=== PATIENT | female | born 1995 | race Caucasian/White ===

== ENCOUNTER 2021-06-19 17:19 | Emergency (ER) | payer SELFPAY ==
[~2021-06-19] VITALS: Ht 175.3 cm; Wt 98.0 kg
[~2021-06-19 17:19] MED LIST: NITR100C62 PO; RISP0.5T24 PO; SERT25TA PO
[2021-06-19 17:35] VITALS: BP 141/83
[2021-06-19] MEDS ORDERED: IBUPROFEN 600 MG TABLET. PO ONE (17:45)
[2021-06-19 18:04] LABS: BACTERIA,URINE 0 /HPF (0-FEW); BILIRUBIN,URINE NEG (NEG); CLARITY,URINE CLEAR; COLOR,URINE YELLOW; GLUCOSE,URINE NEG (NEG); NITRITE,URINE NEG (NEG); RBC,URINE 0 /HPF (0-2); SQUAMOUS EPITHELIAL CELL,UR FEW /LPF; UROBILINOGEN,URINE 0.2 mg/dL (0.2 mg/dL); WBC,URINE 0 /HPF (0-4)
[2021-06-19] MEDS ORDERED: MORPHINE SULFATE 4 MG/ML DISP.SYRIN. IV ONE ×2 (18:30→21:45)
[2021-06-19] MEDS ORDERED: ONDANSETRON PF 4 MG/2 ML VIAL. IVP ONE (18:30)
[2021-06-19 19:13] LABS: CALCIUM 9.1 mg/dL (8.5-10.1); CREATININE 0.8 mg/dL (0.6-1.0); GFR 87.4; POTASSIUM 3.7 mmol/L (3.5-5.1)
[2021-06-19 19:18] LABS: ALBUMIN 4.2 g/dL (3.4-5.0); ALBUMIN/GLOBULIN RATIO 1.3 (1.0-1.7); TOTAL BILIRUBIN 0.4 mg/dL (0.2-1.0); TOTAL PROTEIN 7.4 g/dL (6.4-8.2)
[2021-06-19 19:24] LABS: BASO % 0 % (0-3); EOS # 0.1 x10^3/uL (0.0-0.7); EOS % 2 % (0-3); HEMATOCRIT 42.3 % (36.0-47.0); HEMOGLOBIN 14.4 g/dL (12.0-15.5); LYMPH # 3.1 x10^3/uL (1.0-4.8); LYMPH % 42 % (24-48); MEAN CORPUSCULAR HEMOGLOBIN 34 pg (25-35); MEAN CORPUSCULAR HGB CONC 34 g/dL (31-37); MEAN CORPUSCULAR VOLUME 99 fL (79-100); MONO # 0.5 x10^3/uL (0.0-1.1); MONO % 7 % (0-9); NEUT # 3.6 x10^3uL (1.8-7.7); NEUT % 49 % (31-73); PLATELET COUNT 227 x10^3/uL (140-400); RED BLOOD COUNT 4.29 x10^6/uL (3.50-5.40); RED CELL DISTRIBUTION WIDTH 13.8 % (11.5-14.5); WHITE BLOOD COUNT 7.4 x10^3/uL (4.0-11.0)
[2021-06-19 19:35] LABS: U PREG PATIENT NEGATIVE (NEG)
--- NOTE | 2021-06-19 21:27 | PHYS DOC ---
Past History Past Medical History: Asthma, Depression Additional Past Medical Histor: Pt A1. LMP 08/18/13. Pt started on Mirena IUD 2 months ago. (ADY DUMONT APRN) Past Surgical History: , Other Additional Past Surgical Histo: LEFT WRIST (ADY DUMONT APRN) Smoking: Cigarettes, Less than 1pk/day Alcohol Use: None Drug Use: None (ADY DUMONT APRN) Adult General Chief Complaint Chief Complaint: ABDOMINAL PAIN HPI HPI Patient is a 25-year-old female presents to the emergency department complaining of left sided pelvic pain since 1030 this morning. Patient reports pain came on slowly and became unbearable towards the end of the day, patient reports a history of ovarian cyst on the left, states she is 4 days from starting her next menstrual cycle, patient reports similar episodes in the past with near her menstrual cycles, patient states this pain is worse than what she remembers currently stating 7-8 out of 10 pain, patient reports she took 4 tablets of 325 mg Tylenol 3 hours ago with minimal relief. Patient states she is not sexually active, denies rashes or lesions to her vagina, denies vaginal discharge or STI concerns. Patient denies increased urinary pressure, urinary frequency, or other dysuria. Patient denies nausea, vomiting, diarrhea or constipation. Denies chest pains or shortness of breath. Denies recent fever or chills. Patient denies other physical complaints or physical concerns. (ADY DUMONT APRN) Review of Systems Review of Systems 14 body systems of review of systems have been reviewed. See HPI for pertinent positives and negative responses, otherwise all other systems are negative, nonpertinent or noncontributory. Constitutional: Negative except as outlined in HPI above. Skin: Negative except as outlined in HPI above. Eyes: Negative except as outlined in HPI above. HENT: Negative except as outlined in HPI above. Respiratory: Negative except as outlined in HPI above. Cardiovascular: Negative except as outlined in HPI above. GI: Negative except as outlined in HPI above. : Negative except as outlined in HPI above. Musculoskeletal: Negative except as outlined in HPI above. Integument: Negative except as outlined in HPI above. Neurologic: Negative except as outlined in HPI above. Endocrine: Negative except as outlined in HPI above. Lymphatic: Negative except as outlined in HPI above. Psychiatric: Negative except as outlined in HPI above. (ADY DUMONT APRN) Current Medications Current Medications Current Medications Medications (Trade) Dose Ordered Sig/Nancy Start Time Stop Time Status Last Admin Dose Admin Ibuprofen (Motrin) 600 mg 1X ONCE 06/19/21 17:45 06/19/21 17:46 DC 06/19/21 17:45 600 MG Morphine Sulfate (Morphine 4mg Syringe) 4 mg 1X ONCE 06/19/21 18:30 06/19/21 18:31 DC 06/19/21 18:50 4 MG Ondansetron HCl (Zofran) 4 mg 1X ONCE 06/19/21 18:30 06/19/21 18:31 DC 06/19/21 18:49 4 MG (ADY DUMONT APRN) Allergies Allergies Allergies Coded Allergies Type Severity Reaction Last Updated Verified No Known Drug Allergies 06/19/21 No (ADY DUMONT APRN) Physical Exam Physical Exam Constitutional: Well developed, well nourished, no acute distress, non-toxic appearance. 25-year-old female is tearful otherwise in no apparent distress. HENT: Normocephalic, atraumatic. Eyes: Conjunctiva normal, no discharge. Neck: Normal range of motion, no stridor. Cardiovascular: No cyanosis appreciated, distal cap refill less than 2 seconds. Lungs & Thorax: Patient is in no respiratory distress, no audible adventitious lung sounds appreciated. Abdomen: Nontender to all 4 quadrants, normal bowel sounds all 4 quadrants, no masses, no megaly appreciated, no skin discoloration of the abdomen appreciated, no abnormalities noted. Patient does have pain to palpation left lower pelvic area without rebound tenderness. No right-sided pelvic tenderness to palpation. Skin: Warm, dry, no erythema, no rash. Back: No tenderness, no deformities. Extremities: No tenderness, no cyanosis, no clubbing, ROM intact, no edema. Neurologic: Alert and oriented X 3, normal motor function, normal sensory function, no focal deficits noted. Psychologic: Affect normal, judgement normal, mood normal. (ADY DUMONT APRN) Current Patient Data Vital Signs Vital Signs Date Time Temp Pulse Resp B/P (MAP) Pulse Ox O2 Delivery O2 Flow Rate FiO2 06/19/21 17:35 98.2 83 18 141/83 (102) 100 Room Air Lab Results Laboratory Tests Test 06/19/21 17:40 06/19/21 18:45 Urine Collection Type Clean catch Urine Color Yellow Urine Clarity Clear Urine pH 6.0 Urine Specific Newberg 1.015 Urine Protein Neg Urine Glucose (UA) Neg mg/dL Urine Ketones (Stick) Neg mg/dL Urine Blood Neg Urine Nitrite Neg Urine Bilirubin Neg Urine Urobilinogen Dipstick 0.2 mg/dL Urine Leukocyte Esterase Neg Urine RBC 0 /HPF Urine WBC 0 /HPF Urine Squamous Epithelial Cells Few /LPF Urine Bacteria 0 /HPF White Blood Count 7.4 x10^3/uL Red Blood Count 4.29 x10^6/uL Hemoglobin 14.4 g/dL Hematocrit 42.3 % Mean Corpuscular Volume 99 fL Mean Corpuscular Hemoglobin 34 pg Mean Corpuscular Hemoglobin Concent 34 g/dL Red Cell Distribution Width 13.8 % Platelet Count 227 x10^3/uL Neutrophils (%) (Auto) 49 % Lymphocytes (%) (Auto) 42 % Monocytes (%) (Auto) 7 % Eosinophils (%) (Auto) 2 % Basophils (%) (Auto) 0 % Neutrophils # (Auto) 3.6 x10^3uL Lymphocytes # (Auto) 3.1 x10^3/uL Monocytes # (Auto) 0.5 x10^3/uL Eosinophils # (Auto) 0.1 x10^3/uL Basophils # (Auto) 0.0 x10^3/uL Urine Test Negative Sodium Level 140 mmol/L Potassium Level 3.7 mmol/L Chloride Level 106 mmol/L Carbon Dioxide Level 24 mmol/L Anion Gap 10 Blood Urea Nitrogen 4 mg/dL Creatinine 0.8 mg/dL Estimated GFR (Cockcroft-Gault) 87.4 BUN/Creatinine Ratio 5 Glucose Level 80 mg/dL Calcium Level 9.1 mg/dL Total Bilirubin 0.4 mg/dL Aspartate Amino Transf (AST/SGOT) 20 U/L Alanine Aminotransferase (ALT/SGPT) 21 U/L Alkaline Phosphatase 70 U/L Total Protein 7.4 g/dL Albumin 4.2 g/dL Albumin/Globulin Ratio 1.3 Lipase 43 U/L Current Medications Medications (Trade) Dose Ordered Sig/Nancy Route PRN Reason Start Time Stop Time Status Last Admin Dose Admin Ibuprofen (Motrin) 600 mg 1X ONCE PO 06/19/21 17:45 06/19/21 17:46 DC 06/19/21 17:45 Ondansetron HCl (Zofran) 4 mg 1X ONCE IVP 06/19/21 18:30 06/19/21 18:31 DC 06/19/21 18:49 Morphine Sulfate (Morphine 4mg Syringe) 4 mg 1X ONCE IV 06/19/21 18:30 06/19/21 18:31 DC 06/19/21 18:50 Morphine Sulfate (Morphine 4mg Syringe) 4 mg 1X ONCE IV 06/19/21 21:45 06/19/21 21:46 DC 06/19/21 21:33 Acetaminophen/ Hydrocodone Bitart (Lortab 5) 2 tab 1X ONCE PO 06/19/21 22:15 06/19/21 22:12 DC 06/19/21 22:12 Laboratory Tests Test 06/19/21 17:40 06/19/21 18:45 Urine Collection Type Clean catch Urine Color Yellow Urine Clarity Clear Urine pH 6.0 Urine Specific Newberg 1.015 Urine Protein Neg (NEG-TRACE) Urine Glucose (UA) Neg mg/dL (NEG) Urine Ketones (Stick) Neg mg/dL (NEG) Urine Blood Neg (NEG) Urine Nitrite Neg (NEG) Urine Bilirubin Neg (NEG) Urine Urobilinogen Dipstick 0.2 mg/dL (0.2 mg/dL) Urine Leukocyte Esterase Neg (NEG) Urine RBC 0 /HPF (0-2) Urine WBC 0 /HPF (0-4) Urine Squamous Epithelial Cells Few /LPF Urine Bacteria 0 /HPF (0-FEW) White Blood Count 7.4 x10^3/uL (4.0-11.0) Red Blood Count 4.29 x10^6/uL (3.50-5.40) Hemoglobin 14.4 g/dL (12.0-15.5) Hematocrit 42.3 % (36.0-47.0) Mean Corpuscular Volume 99 fL (79-100) Mean Corpuscular Hemoglobin 34 pg (25-35) Mean Corpuscular Hemoglobin Concent 34 g/dL (31-37) Red Cell Distribution Width 13.8 % (11.5-14.5) Platelet Count 227 x10^3/uL (140-400) Neutrophils (%) (Auto) 49 % (31-73) Lymphocytes (%) (Auto) 42 % (24-48) Monocytes (%) (Auto) 7 % (0-9) Eosinophils (%) (Auto) 2 % (0-3) Basophils (%) (Auto) 0 % (0-3) Neutrophils # (Auto) 3.6 x10^3uL (1.8-7.7) Lymphocytes # (Auto) 3.1 x10^3/uL (1.0-4.8) Monocytes # (Auto) 0.5 x10^3/uL (0.0-1.1) Eosinophils # (Auto) 0.1 x10^3/uL (0.0-0.7) Basophils # (Auto) 0.0 x10^3/uL (0.0-0.2) Urine Test Negative (NEG) Sodium Level 140 mmol/L (136-145) Potassium Level 3.7 mmol/L (3.5-5.1) Chloride Level 106 mmol/L (98-107) Carbon Dioxide Level 24 mmol/L (21-32) Anion Gap 10 (6-14) Blood Urea Nitrogen 4 mg/dL (7-20) L Creatinine 0.8 mg/dL (0.6-1.0) Estimated GFR (Cockcroft-Gault) 87.4 BUN/Creatinine Ratio 5 (6-20) L Glucose Level 80 mg/dL (70-99) Calcium Level 9.1 mg/dL (8.5-10.1) Total Bilirubin 0.4 mg/dL (0.2-1.0) Aspartate Amino Transferase (AST) 20 U/L (15-37) Alanine Aminotransferase (ALT) 21 U/L (14-59) Alkaline Phosphatase 70 U/L (46-116) Total Protein 7.4 g/dL (6.4-8.2) Albumin 4.2 g/dL (3.4-5.0) Albumin/Globulin Ratio 1.3 (1.0-1.7) Lipase 43 U/L (73-393) L (ADY DUMONT APRN) EKG EKG [] (ADY DUMONT APRN) Radiology/Procedures Radiology/Procedures STATUS: REG ER ORD. PHYSICIAN: ADY DUMONT APRN REASON: Left sided pelvic pain torsion study PROCEDURE: US PELVIS W/TV EXAM: ULTRASOUND PELVIS INDICATION: Reason: Left sided pelvic pain torsion study / Spl. Instructions: / History: . Last menstrual period was 05/23/2021. COMPARISON: None available. TECHNIQUE: Transvaginal sonography was performed. FINDINGS: Uterus measures 7.9 x 4.8 x 4.4 cm. Endometrium is 6 mm in thickness. Right ovary measures 3.9 x 2.4 x 1.4 cm. Left ovary measures 4.2 x 3.6 x 2.3 cm. 6 cyst within the left ovary measuring up to 1.6 cm. Vascular flow identified in the ovaries bilaterally. Small free fluid noted in the pelvis. IMPRESSION: 1. Likely hemorrhagic cyst within the left ovary measuring up to 1.6 cm. No evidence for torsion. 2. Normal sonographic appearance of the uterus. 3. Trace free fluid in the pelvis, may be physiologic. Electronically signed by: Rick Membreno MD (06/19/2021 9:39 PM) [facility] (ADY DUMONT APRN) Heart Score C/O Chest Pain: No Risk Factors: Risk Factors: DM, Current or recent (<one month) smoker, HTN, HLP, family history of CAD, obesity. Risk Scores: Risk Factors: DM, Current or recent (<one month) smoker, HTN, HLP, family history of CAD, obesity. (ADY DUMONT APRN) Course & Med Decision Making Course & Med Decision Making Pertinent Labs and Imaging studies reviewed. (See chart for details) 25-year-old female, vital signs reviewed, presents emergency department concerning left lower pelvic pain since 1030 this morning. Physical examination concerning for ovarian cyst versus torsion versus other abnormality, will order pelvic sonogram, urinalysis assay with test, CBC, CMP. Will give intravenous pain medication. Patient denies rashes or lesions to her vaginal area, denies STI concerns, reports she is not sexually active, will defer pelvic examination or STI testing. Sonogram does reveal ovarian cyst, low concern for torsion, patient's lab work unremarkable, the patient's urine is not infected, she is not . Reports IV pain medication brought pain to a 0 out of 10. Patient did wait some time in the emergency department for available sono tech for study, pain started to return, patient was given oral pain medication. Discussed with patient sonogram findings, strict follow-up with primary care or PUBLISHING SYSTEMS ANALYST for ongoing pelvic discomfort and evaluation of ovarian cyst. Discussed with patient prescription medications, reviewed side effects, discussed return to ER precautions and concerns, patient gave verbal understanding of and is amenable to ED discharge planning. Patient reports 2 out of 10 pain at time of discharge, is no longer tearful, is not toxic in appearance, is in no apparent distress, verbalizes she feels safe being discharged home. Discussed with the patient all findings and diagnostic testing as well as the need to follow-up with their primary care provider for further evaluation and treatment or return to the ED if any new or worsening symptoms. Strict return precautions were also discussed at length, the patient voiced understanding and agreement with the discharge planning. The patient was nontoxic in appearance, in no apparent distress, and hemodynamically stable at the time of disposition. (ADY DUMONT APRN) Course & Med Decision Making Did not see or evaluate patient. Did not discuss patient with COMMERCIAL CLEANER. Agree with COMMERCIAL CLEANER's work-up and disposition per note. (MACIEJ ELDER MD) Dragon Disclaimer Dragon Disclaimer This electronic medical record was generated, in whole or in part, using a voice recognition dictation system. (ADY DUMONT APRN) Departure Departure: Impression: Primary Impression: Ovarian cyst Additional Impression: Pelvic pain Disposition: 01 HOME / SELF CARE / HOMELESS Condition: GOOD Referrals: PCP,NO (PCP) Additional Instructions: You were seen today for pain in your lower left pelvis area. A sonogram was performed that showed a ovarian cyst on the left. You do not have a ovarian torsion. You were given oral pain medication for your ovarian cyst pain. Please follow-up with a primary care physician or PUBLISHING SYSTEMS ANALYST for ongoing management of this ovarian cyst. You had stated you did not have a primary care physician, please consider using the [facility] located at [address] and [facility], [address], their telephone number is area code [phone]. You may also consider using the [facility] obstetrics and gynecology located AT [address] [place], their telep yaakov number is area code [phone]. These take prescribed medications as directed, thank you for visiting our Emergency Department. It was a pleasure taking care of you today in the emergency department and we appreciate you trusting us with your care. If any additional problems come up don't hesitate to return to visit us. Please follow up with your primary care provider so they can plan additional care if needed and know about the problem that you had. If symptoms worsen come back to the Emergency Department. Any concerning symptoms that start such as chest pain, shortness of air, weakness or numbness on one side of the body, running high fevers or any other concerning symptoms return to the ER. EMERGENCY DEPARTMENT GENERAL DISCHARGE INSTRUCTIONS Thank you for coming to [facility] (ED) today and trusting us with you care. We trust that you had a positivie experience in our Emergency Department. If you wish to speak to the department management, you may call the director at [phone]. YOUR FOLLOW UP INSTRUCTIONS ARE FOLLOWS: 1. Do you have a private Doctor? If you do not have a private doctor, please ask for a resource list of physicians or clinics that may be able to assist you with follow up care. 2. The Emergency Physician has interpreted your x-rays. The X-Ray specialist will also review them. If there is a change in the findings, you will be notified in 48 hours when at all possible. 3. A lab test or culture has been done, your results will be reviewed and you will be notified if you need a change in treatment. ADDITIONAL INSTRUCTIONS AND INFORMATION: 1. Your care today has been supervised by a physician who is specially trained in emergency care. Many problems require more than one evaluation for a complete diagnosis and treatment. We recommend that you schedule your follow up appointment as recommended to ensure complete treatment of you illness or injury. If you are unable to obtain follow up care and continue to have a problem, or if your condition worsens, we recommend that you return to the ED. 2. We are not able to safely determine your condition over the phone nor are we able to give sound medical advice over the phone. For these safety reasons, if you call for medical advice we will ask you to come to the ED for further evaluation. 3. If you have any questions regarding these discharge instructions please call the ED at [phone]. SAFETY INFORMATION: In the interest of safety, wellness, and injury prevention; we encourage you to wear your sealbelt, if you smoke; quite smoking, and we encourage family to use a protective helmet for bicycling and other sporting events that present an increased risk for head injury. IF YOUR SYMPTOMS WORSEN OR NEW SYMPTOMS DEVELOP, OR YOU HAVE CONCERNS ABOUT YOUR CONDITION; OR IF YOUR CONDITION WORSENS WHILE YOU ARE WAITING FOR YOUR FOLLOW UP APPOINTMENT; EITHER CONTACT YOUR PRIMARY CARE DOCTOR, THE PHYSICIAN WHOSE NAME AND NUMBER YOU WERE GIVEN, OR RETURN TO THE ED IMMEDIATELY. Scripts Ibuprofen (IBUPROFEN) 600 Mg Tablet 600 MG PO Q6-8HRS PRN for PAIN, #30 TAB 0 Refills Prov: ADY DUMONT APRN 06/19/21 Hydrocodone Bit/Acetaminophen (HYDROCODONE-APAP 5-325 ) 1 Each Tablet 1 TAB PO PRN Q6HRS PRN for PAIN, #10 TAB 0 Refills Prov: ADY DUMONT APRN 06/19/21 Problem Qualifiers Primary Impression: Ovarian cyst Laterality: left Qualified Codes: N83.202 - Unspecified ovarian cyst, left side ADY DUMONT APRN Jun 19, 2021 21:27 MACIEJ ELDER MD Jun 20, 2021 19:14
--- NOTE | 2021-06-19 21:41 | RAD ---
EXAM: ULTRASOUND PELVIS INDICATION: Reason: Left sided pelvic pain torsion study / Spl. Instructions: / History: . Last men strual period was 05/23/2021. COMPARISON: None available. TECHNIQUE: Transvaginal sonography was performed. FINDINGS: Uterus measures 7.9 x 4.8 x 4.4 cm. Endometrium is 6 mm in thickness. Right ovary measures 3.9 x 2.4 x 1.4 cm. Left ovary measures 4.2 x 3.6 x 2.3 cm. 6 cyst within the left ovary measuring up to 1.6 cm. Vascular flow identified in the ovaries bilaterally. Small free fluid noted in the pelvis. IMPRESSION: 1. Likely hemorrhagic cyst within the left ovary measuring up to 1.6 cm. No evidence for torsion. 2. Normal sonographic appearance of the uterus. 3. Trace free fluid in the pelvis, may be physiologic. Electronically signed by: Rick Membreno MD (06/19/2021 9:39 PM) [facility]
[2021-06-19] MEDS ORDERED: IBUP600T16 PO (21:57)
[2021-06-19] MEDS ORDERED: HYDR-2155 PO (21:57)
[2021-06-19] MEDS ORDERED: HYDROcodone/APAP 5/325MG 1 TAB TABLET PO ONE (22:15)
== END 2021-06-19 22:12 | disposition home or self-care (01) ==
LOC: ER 17:19
DX: N83.202 Unspecified ovarian cyst, left side (principal); J45.909 Unspecified asthma, uncomplicated; F32.9 Major depressive disorder, single episode, unspecified; F17.210 Nicotine dependence, cigarettes, uncomplicated
CPT/HCPCS: 36415; 76830; 76856; 80053; 81001; 81025; 83690; 85025; 96374; 96375; 96376; 99284; J2270; J2405

== ENCOUNTER 2021-06-24 16:55 | Emergency (ER) | payer MEDICAID ==
[~2021-06-24 16:55] MED LIST changes: +HYDR-2155 PO; +IBUP600T16 PO
[2021-06-24] MEDS ORDERED: MORPHINE SULFATE 4 MG/ML DISP.SYRIN. IV ONE ×2 (17:30→19:30)
--- NOTE | 2021-06-24 18:05 | RAD ---
Examination: CT of the abdomen and pelvis without contrast HISTORY: History of abdominal pain COMPARISON: 10/10/2013 TECHNIQUE: Axial CT images of the abdomen pelvis were performed without contrast. Coronal and sagitta l deformities are performed Exposure: One or more of the following individualized dose reduction techniques were utilized for thi s examination: 1. Automated exposure control 2. Adjustment of the mA and/or kV according to patient size 3. Use of iterative reconstruction technique FINDINGS: The bibasilar lungs are clear. No evidence of free air identified in the abdomen. The evaluation of t he solid organs is limited due to lack of IV contrast. The evaluation of bowel is limited due to lack of oral contrast. The visualized noncontrasted liver, spleen, right adrenal grossly appears unremark able. 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 The gallbladder is mildly distended. The stomach is mildly distended. The visua lized pancreas grossly appears unremarkable. Mildly fluid distended small bowel loops identified in t he abdomen with mild fat stranding identified about the small bowel loops. Mild thickened appearance of the wall of the sigmoid colon with minimal surrounding fat stranding. Small amount of free fluid i dentified in the pelvis. Urinary bladder is mildly distended. The appendix is normal. Punctate 1 mm c alculus left kidney. Mild thickened appearance of the urinary bladder wall. No evidence of lytic bony destructive lesion. IMPRESSION: 1. Mild fluid distended small bowel loops identified in the abdomen with mild fat stranding identifi ed about the small bowel loops could be mild enteritis. 2. Mild thickened appearance of the wall of the sigmoid colon with minimal surrounding fat stranding could be due to nondistention or mild colitis. 3. Small amount of free fluid identified in the pelvis, nonspecific. 4. 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 5. Punctate 1 mm calculus left kidney. 6. Mild thickened appearance of the urinary bladder wall could be due to nondistention or cystitis. Electronically signed by: Darrin Moreno MD (06/24/2021 6:03 PM) [id number]
[2021-06-24 18:17] LABS: BASO % 1 % (0-3); EOS # 0.1 x10^3/uL (0.0-0.7); EOS % 2 % (0-3); HEMATOCRIT 40.6 % (36.0-47.0); HEMOGLOBIN 13.8 g/dL (12.0-15.5); LYMPH # 2.6 x10^3/uL (1.0-4.8); LYMPH % 35 % (24-48); MEAN CORPUSCULAR HEMOGLOBIN 34 pg (25-35); MEAN CORPUSCULAR HGB CONC 34 g/dL (31-37); MEAN CORPUSCULAR VOLUME 99 fL (79-100); MONO # 0.5 x10^3/uL (0.0-1.1); MONO % 7 % (0-9); NEUT # 4.2 x10^3uL (1.8-7.7); NEUT % 56 % (31-73); PLATELET COUNT 204 x10^3/uL (140-400); RED BLOOD COUNT 4.09 x10^6/uL (3.50-5.40); RED CELL DISTRIBUTION WIDTH 13.7 % (11.5-14.5); WHITE BLOOD COUNT 7.5 x10^3/uL (4.0-11.0)
[2021-06-24 18:27] LABS: BILIRUBIN,URINE NEG (NEG); CALCIUM 8.7 mg/dL (8.5-10.1); CLARITY,URINE CLEAR; COLOR,URINE YELLOW; CREATININE 0.8 mg/dL (0.6-1.0); GFR 87.4; GLUCOSE,URINE NEG (NEG)
[2021-06-24 18:28] LABS: NITRITE,URINE NEG (NEG); UROBILINOGEN,URINE 0.2 mg/dL (0.2 mg/dL)
[2021-06-24 18:29] LABS: BACTERIA,URINE 0 /HPF (0-FEW); RBC,URINE OCC /HPF (0-2); SQUAMOUS EPITHELIAL CELL,UR FEW /LPF; WBC,URINE OCC /HPF (0-4)
[2021-06-24 18:32] LABS: ALBUMIN 3.7 g/dL (3.4-5.0); ALBUMIN/GLOBULIN RATIO 1.2 (1.0-1.7); TOTAL BILIRUBIN 0.2 mg/dL (0.2-1.0); TOTAL PROTEIN 6.8 g/dL (6.4-8.2)
[2021-06-24] MEDS ORDERED: ONDANSETRON PF 4 MG/2 ML VIAL. ONE (19:29)
[2021-06-24 19:32] VITALS: BP 115/70
[2021-06-24] MEDS ORDERED: ONDANSETRON PF 4 MG/2 ML VIAL. IVP ONE (19:45)
[2021-06-24] MEDS ORDERED: ONDA4TAB12 PO (19:58)
[2021-06-24] MEDS ORDERED: HYDR-2155 PO (19:58)
--- NOTE | 2021-06-24 20:00 | PHYS DOC ---
Past History Past Medical History: Asthma, Depression Additional Past Medical Histor: Pt A1. LMP 08/18/13. Pt started on Mirena IUD 2 months ago. (RODRICK HAQUE APRN) Past Surgical History: , Other Additional Past Surgical Histo: LEFT WRIST (RODRICK HAQUE APRN) Smoking: Cigarettes, Less than 1pk/day Alcohol Use: None Drug Use: None (RODRICK HAQUE APRN) General Adult EDM: Chief Complaint: ABDOMINAL PAIN HPI: HPI: Patient is a 25-year-old female who presents with left lower abdominal pain . Patient states that she was seen here 5 days ago for the same complaint but pain has not improved. Patient was diagnosed with an ovarian cyst at that time. Patient has not followed up with [facility]. Denies worsening symptoms. Patient was prescribed hydrocodone at that time but is out medication at home. Patient reports nausea. Denies vomiting or diarrhea. Denies dysuria. No chest pain, shortness of breath. Denies taking anything prior to arrival for symptoms. History of anxiety and depression. (RODRICK HAQUE APRN) Review of Systems: Review of Systems: ROS At least 10 ROS systems have been reviewed and are negative except as documented in the HPI. General: Negative except as outlined in HPI above. Skin: Negative except as outlined in HPI above. HEENT: Negative except as outlined in HPI above. Neck: Negative except as outlined in HPI above. Respiratory: Negative except as outlined in HPI above.. Cardiovascular: Negative except as outlined in HPI above. Abdomen: Negative except as outlined in HPI above. : Negative except as outlined in HPI above. Back/MSK: Negative except as outlined in HPI above. Neuro: Negative except as outlined in HPI above. Psych: Negative except as outlined in HPI above. (RODRICK HAQUE APRN) Current Medications: Current Meds: Current Medications Medications (Trade) Dose Ordered Sig/Nancy Start Time Stop Time Status Last Admin Dose Admin Morphine Sulfate (Morphine 4mg Syringe) 4 mg 1X ONCE 06/24/21 19:30 06/24/21 19:33 DC 06/24/21 19:30 4 MG Ondansetron HCl (Zofran) 4 mg 1X ONCE 06/24/21 19:45 06/24/21 19:46 06/24/21 19:33 4 MG (RODRICK HAQUE APRN) Allergies: Allergies: Allergies Coded Allergies Type Severity Reaction Last Updated Verified No Known Drug Allergies 06/19/21 No (RODRICK HAQUE APRN) Physical Exam: PE: Constitutional: Well developed, well nourished, no acute distress, non-toxic appearance. [] HENT: Normocephalic, atraumatic, bilateral external ears normal, oropharynx moist, no oral exudates, nose normal. [] Eyes: PERRLA, EOMI, conjunctiva normal, no discharge. [] Neck: Normal range of motion, no tenderness, supple, no stridor. [] Cardiovascular:Heart rate regular rhythm, no murmur [] Lungs & Thorax: Bilateral breath sounds clear to auscultation [] Abdomen: Bowel sounds normal, soft, left lower abdominal tenderness Skin: Warm, dry, no erythema, no rash. [] Back: No tenderness, no CVA tenderness. [] Extremities: No tenderness, no cyanosis, no clubbing, ROM intact, no edema. [] Neurologic: Alert and oriented X 3, normal motor function, normal sensory function, no focal deficits noted. [] Psychologic: Affect normal, judgement normal, mood normal. [] (RODRICK HAQUE APRN) Current Patient Data: Labs: Laboratory Tests Test 06/24/21 17:50 White Blood Count 7.5 x10^3/uL (4.0-11.0) Red Blood Count 4.09 x10^6/uL (3.50-5.40) Hemoglobin 13.8 g/dL (12.0-15.5) Hematocrit 40.6 % (36.0-47.0) Mean Corpuscular Volume 99 fL (79-100) Mean Corpuscular Hemoglobin 34 pg (25-35) Mean Corpuscular Hemoglobin Concent 34 g/dL (31-37) Red Cell Distribution Width 13.7 % (11.5-14.5) Platelet Count 204 x10^3/uL (140-400) Neutrophils (%) (Auto) 56 % (31-73) Lymphocytes (%) (Auto) 35 % (24-48) Monocytes (%) (Auto) 7 % (0-9) Eosinophils (%) (Auto) 2 % (0-3) Basophils (%) (Auto) 1 % (0-3) Neutrophils # (Auto) 4.2 x10^3uL (1.8-7.7) Lymphocytes # (Auto) 2.6 x10^3/uL (1.0-4.8) Monocytes # (Auto) 0.5 x10^3/uL (0.0-1.1) Eosinophils # (Auto) 0.1 x10^3/uL (0.0-0.7) Basophils # (Auto) 0.0 x10^3/uL (0.0-0.2) Urine Collection Type Unknown Urine Color Yellow Urine Clarity Clear Urine pH 6.0 Urine Specific [place] <=1.005 Urine Protein Neg (NEG-TRACE) Urine Glucose (UA) Neg mg/dL (NEG) Urine Ketones (Stick) Neg mg/dL (NEG) Urine Blood Neg (NEG) Urine Nitrite Neg (NEG) Urine Bilirubin Neg (NEG) Urine Urobilinogen Dipstick 0.2 mg/dL (0.2 mg/dL) Urine Leukocyte Esterase Neg (NEG) Urine RBC Occ /HPF (0-2) Urine WBC Occ /HPF (0-4) Urine Squamous Epithelial Cells Few /LPF Urine Bacteria 0 /HPF (0-FEW) Sodium Level 140 mmol/L (136-145) Potassium Level 4.0 mmol/L (3.5-5.1) Chloride Level 106 mmol/L (98-107) Carbon Dioxide Level 24 mmol/L (21-32) Anion Gap 10 (6-14) Blood Urea Nitrogen 4 mg/dL (7-20) L Creatinine 0.8 mg/dL (0.6-1.0) Estimated GFR (Cockcroft-Gault) 87.4 BUN/Creatinine Ratio 5 (6-20) L Glucose Level 86 mg/dL (70-99) Calcium Level 8.7 mg/dL (8.5-10.1) Total Bilirubin 0.2 mg/dL (0.2-1.0) Aspartate Amino Transferase (AST) 15 U/L (15-37) Alanine Aminotransferase (ALT) 19 U/L (14-59) Alkaline Phosphatase 61 U/L (46-116) Total Protein 6.8 g/dL (6.4-8.2) Albumin 3.7 g/dL (3.4-5.0) Albumin/Globulin Ratio 1.2 (1.0-1.7) Vital Signs: Vital Signs Date Time Temp Pulse Resp B/P (MAP) Pulse Ox O2 Delivery O2 Flow Rate FiO2 06/24/21 19:32 73 18 115/70 (85) 99 Room Air (SHABNAMRODRICKDOMINIQUE VALLE) EKG: EKG: [] (HAQUERODRICKDOMINIQUE VALLE) Radiology/Procedures: Radiology/Procedures: [] Examination: CT of the abdomen and pelvis without contrast HISTORY: History of abdominal pain COMPARISON: 10/10/2013 TECHNIQUE: Axial CT images of the abdomen pelvis were performed without contrast. Coronal and sagittal deformities are performed Exposure: One or more of the following individualized dose reduction techniques were utilized for this examination: 1. Automated exposure control 2. Adjustment of the mA and/or kV according to patient size 3. Use of iterative reconstruction technique FINDINGS: The bibasilar lungs are clear. No evidence of free air identified in the abdomen. The evaluation of the solid organs is limited due to lack of IV contrast. The evaluation of bowel is limited due to lack of oral contrast. The visualized noncontrasted liver, spleen, right adrenal grossly appears unremarkable. 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 The gallbladder is mildly distended. The stomach is mildly distended. The visualized pancreas grossly appears unremarkable. Mildly fluid distended small bowel loops identified in the abdomen with mild fat stranding identified about the small bowel loops. Mild thickened appearance of the wall of the sigmoid colon with minimal surrounding fat stranding. Small amount of free fluid identified in the pelvis. Urinary bladder is mildly distended. The appendix is normal. Punctate 1 mm calculus left kidney. Mild thickened appearance of the urinary bladder wall. No evidence of lytic bony destructive lesion. IMPRESSION: 1. Mild fluid distended small bowel loops identified in the abdomen with mild fat stranding identified about the small bowel loops could be mild enteritis. 2. Mild thickened appearance of the wall of the sigmoid colon with minimal surrounding fat stranding could be due to nondistention or mild colitis. 3. Small amount of free fluid identified in the pelvis, nonspecific. 4. 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 5. Punctate 1 mm calculus left kidney. 6. Mild thickened appearance of the urinary bladder wall could be due to nondistention or cystitis. Electronically signed by: Darrin Moreno MD (06/24/2021 6:03 PM) [id number] DICTATED AND SIGNED BY: DARRIN MORENO MD DATE: 06/24/211752 (RODRICK HAQUE APRN) Heart Score: C/O Chest Pain: No Risk Factors: Risk Factors: DM, Current or recent (<one month) smoker, HTN, HLP, family history of CAD, obesity. Risk Scores: Score 0 - 3: 2.5% MACE over next 6 weeks - Discharge Home Score 4 - 6: 20.3% MACE over next 6 weeks - Admit for Clinical Observation Score 7 - 10: 72.7% MACE over next 6 weeks - Early Invasive Strategies (RODRICK HAQUE APRN) Course & Med Decision Making: Course & Med Decision Making Pertinent Labs and Imaging studies reviewed. (See chart for details) [] 25-year-old female presents with left lower abdominal pain. This is patient's second visit in the last week. Patient was seen 5 days ago for same complaints and diagnosed at that time with an ovarian cyst. Patient is out of her hydrocodone that she was sent home with. Lower work-up in ER consisted of labs, urinalysis, CT abdomen and pelvis. Pain and nausea treated in the [facility] room. All labs unremarkable. UA is negative for infection. Get a test. CT abdomen pelvis shows some mild colitis. No evidence of obstructing stone. Discussed all results with patient. Advised patient pain is most likely resulting from ovarian cyst. Reviewed ultrasound results from last visit. Patient was still reporting pain. Patient given second dose of pain medication. I am sending patient home with hydrocodone along with Zofran to treat symptoms at home. Advised patient that she needs to make a follow-up appointment with a FACILITY MANAGER HISTOLOGY. Patient states that she now has insurance and that she will be calling [facility] to make an appointment. Discussed return precautions in length with patient. Patient reports that she understands discharge instructions. (RODRICK HAQUE APRN) Mary Disclaimer: Mary Disclaimer: This electronic medical record was generated, in whole or in part, using a voice recognition dictation system. (RODRICK HAQUE APRN) Departure Departure: Impression: Primary Impression: Abdominal pain Qualified Codes: R10.32 - Left lower quadrant pain Disposition: HOME / SELF CARE / HOMELESS Condition: STABLE Referrals: PCP,NO (PCP) Patient Instructions: Ovarian Cyst, [id number] Additional Instructions: You are seen the emergency room for left lower abdominal pain. Your pain is most likely coming from the ovarian cyst that you were diagnosed with 5 days ago. I am sending you home with pain medication along with nausea medication. Please make an appointment with FACILITY MANAGER HISTOLOGY and make a follow-up appointment for further management. Return to emergency room if you have worsening symptoms or concerns such as increased abdominal pain, uncontrolled nausea and vomiting, shortness of breath, chest pain. EMERGENCY DEPARTMENT GENERAL DISCHARGE INSTRUCTIONS Thank you for coming to [facility] (ED) today and trusting us with you care. We trust that you had a positivie experience in our Emergency Department. If you wish to speak to the department management, you may call the director at [phone]. YOUR FOLLOW UP INSTRUCTIONS ARE FOLLOWS: 1. Do you have a private Doctor? If you do not have a private doctor, please ask for a resource list of physicians or clinics that may be able to assist you with follow up care. 2. The Emergency Physician has interpreted your x-rays. The X-Ray specialist will also review them. If there is a change in the findings, you will be notified in 48 hours when at all possible. 3. A lab test or culture has been done, your results will be reviewed and you will be notified if you need a change in treatment. ADDITIONAL INSTRUCTIONS AND INFORMATION: 1. Your care today has been supervised by a physician who is specially trained in emergency care. Many problems require more than one evaluation for a complete diagnosis and treatment. We recommend that you schedule your follow up appointment as recommended to ensure complete treatment of you illness or injury. If you are unable to obtain follow up care and continue to have a problem, or if your condition worsens, we recommend that you return to the ED. 2. We are not able to safely determine your condition over the phone nor are we able to give sound medical advice over the phone. For these safety reasons, if you call for medical advice we will ask you to come to the ED for further evaluation. 3. If you have any questions regarding these discharge instructions please call the ED at [phone]. SAFETY INFORMATION: In the interest of safety, wellness, and injury prevention; we encourage you to wear your sealbelt, if you smoke; quite smoking, and we encourage family to use a protective helmet for bicycling and other sporting events that present an increased risk for head injury. IF YOUR SYMPTOMS WORSEN OR NEW SYMPTOMS DEVELOP, OR YOU HAVE CONCERNS ABOUT YOUR CONDITION; OR IF YOUR CONDITION WORSENS WHILE YOU ARE WAITING FOR YOUR FOLLOW UP AP POINTMENT; EITHER CONTACT YOUR PRIMARY CARE DOCTOR, THE PHYSICIAN WHOSE NAME AND NUMBER YOU WERE GIVEN, OR RETURN TO THE ED IMMEDIATELY. Scripts Ondansetron (ONDANSETRON ODT) 4 Mg Tab.rapdis 1 TAB PO PRN Q6-8HRS for nausea for 3 Days, #12 TAB Prov: RODRICK HAQUE APRN 06/24/21 Hydrocodone Bit/Acetaminophen (HYDROCODONE-APAP 5-325 ) 1 Each Tablet 1 TAB PO PRN Q6HRS PRN for PAIN for 3 Days, #12 TAB 0 Refills Prov: RODRICK HAQUE APRN 06/24/21 Attending Signature Attending Signature I have reviewed the PA/REFERENCE TEST CLERK's note and plan of care. I was available for cons ultation as needed during the patient's visit in the emergency department. I agree with the clinical impression, plan, and disposition. (ADY RILEY DO) RODRICK HAQUE APRN Jun 24, 2021 20:00 ADY RILEY DO Jun 25, 2021 04:05
[2021-06-24] MEDS ORDERED: HYDROcodone/APAP 5/325MG 1 TAB TABLET ONE (20:06)
[2021-06-24 20:11] LABS: U PREG PATIENT NEGATIVE (NEG)
[2021-06-24] MEDS ORDERED: HYDROcodone/APAP 5/325MG 1 TAB TABLET PO ONE (20:15)
== END 2021-06-24 20:10 | disposition home or self-care (01) ==
LOC: ER 16:55
DX: R10.32 Left lower quadrant pain (principal); R11.0 Nausea; J45.909 Unspecified asthma, uncomplicated; F17.210 Nicotine dependence, cigarettes, uncomplicated
CPT/HCPCS: 36415; 74176; 80053; 81001; 81025; 85025; 96374; 96375; 96376; 99284; J2270; J2405

== ENCOUNTER 2021-07-25 16:59 | Emergency (ER) | payer MEDICAID, OTHER ==
[~2021-07-25] VITALS: Ht 175.3 cm; Wt 102.0 kg
[~2021-07-25 16:59] MED LIST changes: +ONDA4TAB12 PO
[2021-07-25] MEDS ORDERED: KETOROLAC 15 MG/ML VIAL. IVP ONE (17:45)
[2021-07-25 18:16] LABS: BASO # 0.3 x10^3/uL (0.0-0.2); BASO % 3 % (0-3); EOS # 0.1 x10^3/uL (0.0-0.7); EOS % 1 % (0-3); HEMATOCRIT 42.5 % (36.0-47.0); HEMOGLOBIN 14.3 g/dL (12.0-15.5); LYMPH # 2.6 x10^3/uL (1.0-4.8); LYMPH % 25 % (24-48); MEAN CORPUSCULAR HEMOGLOBIN 34 pg (25-35); MEAN CORPUSCULAR HGB CONC 34 g/dL (31-37); MEAN CORPUSCULAR VOLUME 100 fL (79-100); MONO # 0.5 x10^3/uL (0.0-1.1); MONO % 5 % (0-9); NEUT # 6.7 x10^3uL (1.8-7.7); NEUT % 66 % (31-73); PLATELET COUNT 258 x10^3/uL (140-400); RED BLOOD COUNT 4.25 x10^6/uL (3.50-5.40); RED CELL DISTRIBUTION WIDTH 14.2 % (11.5-14.5); WHITE BLOOD COUNT 10.2 x10^3/uL (4.0-11.0)
[2021-07-25 18:20] LABS: BACTERIA,URINE 0 /HPF (0-FEW); CLARITY,URINE CLEAR; COLOR,URINE PINK; GLUCOSE,URINE NEG (NEG); NITRITE,URINE NEG (NEG); RBC,URINE >40 /HPF (0-2); UROBILINOGEN,URINE 0.2 mg/dL (0.2 mg/dL)
[2021-07-25 18:21] LABS: SQUAMOUS EPITHELIAL CELL,UR FEW /LPF; U PREG PATIENT NEGATIVE (NEG)
[2021-07-25 18:29] LABS: CALCIUM 9.3 mg/dL (8.5-10.1); CREATININE 0.8 mg/dL (0.6-1.0); GFR 87.4; POTASSIUM 4.3 mmol/L (3.5-5.1)
[2021-07-25] MEDS ORDERED: ONDANSETRON PF 4 MG/2 ML VIAL. IVP ONE (18:30)
[2021-07-25 18:34] LABS: ALBUMIN 3.9 g/dL (3.4-5.0); ALBUMIN/GLOBULIN RATIO 1.1 (1.0-1.7); TOTAL BILIRUBIN 0.4 mg/dL (0.2-1.0); TOTAL PROTEIN 7.5 g/dL (6.4-8.2)
--- NOTE | 2021-07-25 18:40 | PHYS DOC ---
Past History Past Medical History: Asthma, Depression Additional Past Medical Histor: Pt A1. LMP 08/18/13. Pt started on Mirena IUD 2 months ago. (RODRICK HAQUE APRN) Past Surgical History: , Other Additional Past Surgical Histo: LEFT WRIST (RODRICK HAQUE APRN) Smoking: Cigarettes, Less than 1pk/day Alcohol Use: None Drug Use: None (RODRICK HAQUE APRN) General Adult EDM: Chief Complaint: ABDOMINAL PAIN HPI: HPI: Patient is a 25-year-old female who presents with generalized abdominal pain. Patient states that her abdominal pain is located in her lower abdomen. Denies nausea/vomiting/diarrhea. Patient was seen here 2 times in the month of June for same complaint and diagnosed with ovarian cyst. Patient is afebrile. Denies anything prior to arrival for discomfort. LMP, 07/24/2021. "At first I thought I was just having cramps but this hurts much worse than normal.". "I have not scheduled my appointment with [facility] yet because I keep forgetting and have been busy". History of anxiety and depression, ovarian cyst. (RODRICK HAQUE APRN) Review of Systems: Review of Systems: ROS At least 10 ROS systems have been reviewed and are negative except as documented in the HPI. General: Negative except as outlined in HPI above. Skin: Negative except as outlined in HPI above. HEENT: Negative except as outlined in HPI above. Neck: Negative except as outlined in HPI above. Respiratory: Negative except as outlined in HPI above.. Cardiovascular: Negative except as outlined in HPI above. Abdomen: Negative except as outlined in HPI above. : Negative except as outlined in HPI above. Back/MSK: Negative except as outlined in HPI above. Neuro: Negative except as outlined in HPI above. Psych: Negative except as outlined in HPI above. (RODRICK HAQUE APRN) Current Medications: Current Meds: Current Medications Medications (Trade) Dose Ordered Sig/Nancy Start Time Stop Time Status Last Admin Dose Admin Ketorolac Tromethamine (Toradol 15mg Vial) 15 mg 1X ONCE 07/25/21 17:45 07/25/21 17:46 DC 07/25/21 17:45 15 MG Ondansetron HCl (Zofran) 4 mg 1X ONCE 07/25/21 18:30 07/25/21 18:31 DC 07/25/21 18:27 4 MG (RODRICK HAQUE APRN) Allergies: Allergies: Allergies Coded Allergies Type Severity Reaction Last Updated Verified No Known Drug Allergies 06/19/21 No (RODRICK HAQUE APRN) Physical Exam: PE: Constitutional: Well developed, well nourished, no acute distress, non-toxic appearance. [] HENT: Normocephalic, bilateral external ears normal,no oral exudates, nose normal. [] Eyes: PERRLA, conjunctiva normal, no discharge. [] Neck: Normal range of motion, no tenderness, supple, no stridor. [] Cardiovascular:Heart rate regular rhythm, no murmur [] Lungs & Thorax: Bilateral breath sounds clear to auscultation [] Abdomen: Bowel sounds normal, soft, lower abdominal tenderness Skin: Warm, dry, no erythema, no rash. [] Back: No tenderness, no CVA tenderness. [] Extremities: No tenderness, no cyanosis, no clubbing, ROM intact, no edema. [] Neurologic: Alert and oriented X 3, normal motor function, normal sensory function, no focal deficits noted. [] Psychologic: Affect normal, judgement normal, mood normal. [] (RODRICK HAQUE APRN) Current Patient Data: Labs: Laboratory Tests Test 07/25/21 17:00 07/25/21 17:56 Urine Collection Type Clean catch Urine Color [place] Urine Clarity Clear Urine pH 6.5 Urine Specific [place] 1.015 Urine Protein Neg (NEG-TRACE) Urine Glucose (UA) Neg mg/dL (NEG) Urine Ketones (Stick) Neg mg/dL (NEG) Urine Blood Mod (NEG) Urine Nitrite Neg (NEG) Urine Bilirubin Neg (NEG) Urine Urobilinogen Dipstick 0.2 mg/dL (0.2 mg/dL) Urine Leukocyte Esterase Small (NEG) Urine RBC >40 /HPF (0-2) Urine WBC 1-4 /HPF (0-4) Urine Squamous Epithelial Cells Few /LPF Urine Bacteria 0 /HPF (0-FEW) Urine Test Negative (NEG) White Blood Count 10.2 x10^3/uL (4.0-11.0) Red Blood Count 4.25 x10^6/uL (3.50-5.40) Hemoglobin 14.3 g/dL (12.0-15.5) Hematocrit 42.5 % (36.0-47.0) Mean Corpuscular Volume 100 fL (79-100) Mean Corpuscular Hemoglobin 34 pg (25-35) Mean Corpuscular Hemoglobin Concent 34 g/dL (31-37) Red Cell Distribution Width 14.2 % (11.5-14.5) Platelet Count 258 x10^3/uL (140-400) Neutrophils (%) (Auto) 66 % (31-73) Lymphocytes (%) (Auto) 25 % (24-48) Monocytes (%) (Auto) 5 % (0-9) Eosinophils (%) (Auto) 1 % (0-3) Basophils (%) (Auto) 3 % (0-3) Neutrophils # (Auto) 6.7 x10^3uL (1.8-7.7) Lymphocytes # (Auto) 2.6 x10^3/uL (1.0-4.8) Monocytes # (Auto) 0.5 x10^3/uL (0.0-1.1) Eosinophils # (Auto) 0.1 x10^3/uL (0.0-0.7) Basophils # (Auto) 0.3 x10^3/uL (0.0-0.2) H Vital Signs: Vital Signs Date Time Temp Pulse Resp B/P (MAP) Pulse Ox O2 Delivery O2 Flow Rate FiO2 07/25/21 17:09 98.3 80 16 122/84 (97) 99 Room Air (RODRICK HAQUE APRN) EKG: EKG: [] (RODRICK HAQUE APRN) Radiology/Procedures: Radiology/Procedures: []EXAMINATION: CT ABDOMEN+PELVIS WO. Technique: Axial images with coronal and sagittal reconstructions are performed of abdomen and pelvis without contrast. One or more of the following radiation dose reduction techniques was used: automated exposure control, adjustment of mA and/or KV according to patient size, and/or utilization of iterative reconstruction technique. HISTORY: 25 years Female Reason: bilateral lower abd pain / COMPARISON: June 24, 2021. FINDINGS: Lung bases are clear. The liver, gallbladder, spleen, the pancreas and the right adrenal gland appear unremarkable for an unenhanced exam. The left adrenal gland demonstrate a nodule measuring 1.4 cm in size. This is stable from December 28, 2019 and is probably therefore a benign adenoma. The kidneys have the normal size of the collecting system, no hydronephrosis. No urinary tract stones. The urinary bladder is a distended with no focal lesion identified. The uterus and adnexa appear grossly unremarkable. The appendix is normal. There is no bowel obstruction. No significant diverticulosis or bowel wall thickening. The no significant free fluid or fluid collection in the abdomen or pelvis is seen. The osseous structures demonstrate straightening of the upper lumbar spine curvature which could relate to muscle spasm. IMPRESSION: 1. Left adrenal nodule measuring 1.4 cm, stable from December 2019 exam likely an adenoma. 2. Straightening of the spine curvature mostly around the thoracolumbar junction could relate to muscle spasm.. Electronically signed by: Alex Harkins MD (07/25/2021 6:54 PM) [id number] (RODRICK HAQUE APRN) Heart Score: C/O Chest Pain: No Risk Factors: Risk Factors: DM, Current or recent (<one month) smoker, HTN, HLP, family history of CAD, obesity. Risk Scores: Score 0 - 3: 2.5% MACE over next 6 weeks - Discharge Home Score 4 - 6: 20.3% MACE over next 6 weeks - Admit for Clinical Observation Score 7 - 10: 72.7% MACE over next 6 weeks - Early Invasive Strategies (RODRICK HAQUE APRN) Course & Med Decision Making: Course & Med Decision Making Pertinent Labs and Imaging studies reviewed. (See chart for details) [] 25-year-old female presents with generalized lower abdominal pain. Patient was recently seen in the ER last month for the same complaint. Work-up in ER consisted of labs, UA, urine test, CT abdomen and pelvis. All labs unremarkable. Urine negative for infection. CT abdomen pelvis consistent with June CT that was performed. No new acute findings. Patient needs to follow-up with [facility] for further management. Discussed all results with patient. Patient states that she will be calling her [facility] tomorrow to make an appointment. Pain has improved. Ibuprofen and Tylenol at home for pain. Discussed return precautions. (RODRICK HAQUE APRN) Dragon Disclaimer: Dragon Disclaimer: This electronic medical record was generated, in whole or in part, using a voice recognition dictation system. (HAQUE,RODRICK ANTIQUER) Departure Departure: Impression: Primary Impression: Abdominal pain Qualified Codes: R10.9 - Unspecified abdominal pain Disposition: HOME / SELF CARE / HOMELESS Condition: STABLE Referrals: PCP,DANGELO (PCP) Patient Instructions: Abdominal Pain Additional Instructions: You were seen in the emergency room for abdominal pain. Your CT was comparable to last month. You need to follow-up with [facility] like we discussed for further evaluation and management. Ibuprofen and Tylenol at home for discomfort. Return to the emergency room if you have worsening symptoms or concerns. EMERGENCY DEPARTMENT GENERAL DISCHARGE INSTRUCTIONS Thank you for coming to [facility] (ED) today and trusting us with you care. We trust that you had a positivie experience in our Emergency Department. If you wish to speak to the department management, you may call the director at [phone]. YOUR FOLLOW UP INSTRUCTIONS ARE FOLLOWS: 1. Do you have a private Doctor? If you do not have a private doctor, please ask for a resource list of physicians or clinics that may be able to assist you with follow up care. 2. The Emergency Physician has interpreted your x-rays. The X-Ray specialist will also review them. If there is a change in the findings, you will be notified in 48 hours when at all possible. 3. A lab test or culture has been done, your results will be reviewed and you will be notified if you need a change in treatment. ADDITIONAL INSTRUCTIONS AND INFORMATION: 1. Your care today has been supervised by a physician who is specially trained in emergency care. Many problems require more than one evaluation for a complete diagnosis and treatment. We recommend that you schedule your follow up appointment as recommended to ensure complete treatment of you illness or injury. If you are unable to obtain follow up care and continue to have a problem, or if your condition worsens, we recommend that you return to the ED. 2. We are not able to safely determine your condition over the phone nor are we able to give sound medical advice over the phone. For these safety reasons, if you call for medical advice we will ask you to come to the ED for further evaluation. 3. If you have any questions regarding these discharge instructions please call the ED at [phone]. SAFETY INFORMATION: In the interest of safety, wellness, and injury prevention; we encourage you to wear your sealbelt, if you smoke; quite smoking, and we encourage family to use a protective helmet for bicycling and other sporting events that present an increased risk for head injury. IF YOUR SYMPTOMS WORSEN OR NEW SYMPTOMS DEVELOP, OR YOU HAVE CONCERNS ABOUT YOUR CONDITION; OR IF YOUR CONDITION WORSENS WHILE YOU ARE WAITING FOR YOUR FOLLOW UP APPOINTMENT; EITHER CONTACT YOUR PRIMARY CARE DOCTOR, THE PHYSICIAN WHOSE NAME AND NUMBER YOU WERE GIVEN, OR RETURN TO THE ED IMMEDIATELY. Dragon Disclaimer This chart was dictated in whole or in part using Voice Recognition software in a busy, high-work load, and often noisy Emergency Department environment. It m ay contain unintended and wholly unrecognized errors or omissions. (HENRIETTA FLANNERY MD) Attending Signature Attending Signature I have participated in the care of this patient and I have reviewed and agree wi th all pertinent clinical information above including history, exam, and recommendations. (HENRIETTA FLANNERY MD) RODRICK HAQUE APRN Jul 25, 2021 18:40 HENRIETTA FLANNERY MD Jul 26, 2021 05:34
--- NOTE | 2021-07-25 18:56 | RAD ---
EXAMINATION: CT ABDOMEN+PELVIS WO. Technique: Axial images with coronal and sagittal reconstructions are performed of abdomen and pelvis without contrast. One or more of the following radiation dose reduction techniques was used: automated exposure control , adjustment of mA and/or KV according to patient size, and/or utilization of iterative reconstructio n technique. HISTORY: 25 years Female Reason: bilateral lower abd pain / COMPARISON: June 24, 2021. FINDINGS: Lung bases are clear. The liver, gallbladder, spleen, the pancreas and the right adrenal gland appear unremarkable for an u nenhanced exam. The left adrenal gland demonstrate a nodule measuring 1.4 cm in size. This is stable from December 28, 2019 and is probably therefore a benign adenoma. The kidneys have the normal size of the collecting system, no hydronephrosis. No urinary tract stones . The urinary bladder is a distended with no focal lesion identified. The uterus and adnexa appear gr ossly unremarkable. The appendix is normal. There is no bowel obstruction. No significant diverticulosis or bowel wall th ickening. The no significant free fluid or fluid collection in the abdomen or pelvis is seen. The osseous structures demonstrate straightening of the upper lumbar spine curvature which could rela te to muscle spasm. IMPRESSION: 1. Left adrenal nodule measuring 1.4 cm, stable from December 2019 exam likely an adenoma. 2. Straightening of the spine curvature mostly around the thoracolumbar junction could relate to musc le spasm.. Electronically signed by: Alex Harkins MD (07/25/2021 6:54 PM) [id number]
[2021-07-25] MEDS ORDERED: MORPHINE SULFATE 4 MG/ML DISP.SYRIN. IV ONE (19:15)
[2021-07-25 19:38] VITALS: BP 119/80
== END 2021-07-25 19:52 | disposition home or self-care (01) ==
LOC: ER 16:59
DX: R10.84 Generalized abdominal pain (principal); R10.30 Lower abdominal pain, unspecified; J45.909 Unspecified asthma, uncomplicated; F17.210 Nicotine dependence, cigarettes, uncomplicated
CPT/HCPCS: 36415; 74176; 80053; 81001; 81025; 85025; 87086; 96374; 96375; 99284; J1885; J2270; J2405